=== PATIENT | female | born 1965 | race Caucasian/White ===

== ENCOUNTER 2020-08-13 19:56 | Emergency (ER) | payer OTHER ==
[~2020-08-13 19:56] MED LIST: GLUCOPHAGE 500500 MG PO; GLUCOTROL5 MG PO; NORCO 5-325 TA1 EACH PO; PROVERA10 MG PO
[2020-08-13 22:50] LABS: HEMOGLOBIN 14.1 gm/dl (12.3-15.3); RED BLOOD COUNT 4.9 M/UL (4.00-5.10); WHITE BLOOD COUNT 8.2 K/UL (4.5-11.0)
[2020-08-13 23:12] LABS: BUN/CREATININE RATIO 21 (0-10)
[2020-08-14] MEDS ORDERED: ZOFRAN ODT 4 MG4 MG PO (01:37)
[2020-08-14] MEDS ORDERED: BENTYL 20MG TAB20 MG PO (01:37)
== END 2020-08-14 02:44 | disposition home or self-care (01) ==
LOC: ER1 19:56
PROVIDERS: Physician Assistant Medical
DX: R10.31 Right lower quadrant pain (principal); R91.1 Solitary pulmonary nodule; R11.0 Nausea; E11.9 Type 2 diabetes mellitus without complications; I10 Essential (primary) hypertension; F17.210 Nicotine dependence, cigarettes, uncomplicated; Z88.2 Allergy status to sulfonamides; Z90.49 Acquired absence of other specified parts of digestive tract; Z79.899 Other long term (current) drug therapy
CPT/HCPCS: 71046; 76830; 80053; 81001; 83605; 83690; 85025; 99284; Q9967